=== PATIENT | male | born 1985 | race Two or more races ===

== ENCOUNTER 2020-05-02 23:46 | Emergency (ER) | payer MEDICAID ==
[~2020-05-02] VITALS: Ht 185.4 cm; Wt 121.0 kg
[2020-05-03] MEDS ORDERED: SODIUM CHLORIDE 0.9% 1,000 ML IV ONE (02:45)
[2020-05-03 03:18] LABS: HEMATOCRIT. 42.4 % (42.0-52.0); HEMOGLOBIN. 14.7 g/dL (14.0-18.0); MEAN CORPUSCULAR HEMOGLOBIN 30.8 pg (28.0-32.0); MEAN CORPUSCULAR VOLUME 88.5 fL (80.0-94.0); MEAN PLATELET VOLUME 7.2 fl (7.4-10.4); PLATELET 345 x1000/uL (130-400); RED BLOOD CELL COUNT 4.79 mill/uL (4.7-6.1); RED CELL DISTRIBUTION WIDTH 12.5 % (11.6-14.6)
[2020-05-03 03:24] LABS: CHLORIDE 104 mEq/L (98-107)
[2020-05-03] MEDS ORDERED: MECLIZINE 25MG TABLET PO ONE (04:00)
[2020-05-03 04:36] LABS: CLARITY URINE CLEAR (CLEAR); COLOR URINE YELLOW (YELLOW); KETONES URINE NEGATIVE (NEGATIVE); LEUKOCYTE ESTERASE URINE NEGATIVE (NEGATIVE); NITRITE URINE NEGATIVE (NEGATIVE); OCCULT BLOOD URINE NEGATIVE (NEGATIVE); PROTEIN URINE TRACE (NEGATIVE); SPECIFIC GRAVITY URINE 1.025 (1.005-1.030)
[2020-05-03 05:50] VITALS: BP 137/74
[2020-05-03 07:00] LABS: PLATELET ESTIMATE NORMAL
== END 2020-05-03 05:51 | disposition home or self-care (01) ==
LOC: ER 23:46
DX: R42 Dizziness and giddiness (principal); E11.9 Type 2 diabetes mellitus without complications
CPT/HCPCS: 36415; 70450; 71045; 80053; 81003; 82962; 85025; 93005; 96360; 99285; J7030; J8597